=== PATIENT | male | born 1985 | race African-American/Black ===

== ENCOUNTER 2020-03-09 13:44 | Emergency (ER) | payer MEDICAID ==
[~2020-03-09] VITALS: Ht 172.7 cm; Wt 91.0 kg
[2020-03-09 13:46] VITALS: BP 180/129
== END 2020-03-09 15:24 | disposition left against medical advice (07) ==
LOC: ER 13:44
DX: Z53.21 Procedure and treatment not carried out due to patient leaving prior to being seen by health care provider (principal); K08.89 Other specified disorders of teeth and supporting structures; I10 Essential (primary) hypertension; Z91.013 Allergy to seafood